=== PATIENT | female | born 1960 | race Caucasian/White ===

== ENCOUNTER 2018-05-02 08:01 | Day surgery (SDC) | payer OTHER ==
[~2018-05-02] VITALS: Ht 162.6 cm; Wt 80.2 kg
[~2018-05-02 08:01] MED LIST: TRAVATAN Z5 ML BOTH EYES
[2018-05-02 08:30] LABS: BASOPHIL (%) 1.3 % (0-1); BASOPHIL COUNT 0.1 K/uL (0-0.1); EOSINOPHIL (%) 1.4 % (0-5); EOSINOPHIL COUNT 0.1 K/uL (0-0.3); HEMATOCRIT 42.7 % (36.0-46.0); HEMOGLOBIN 13.7 G/DL (11.9-15.5); IMMATURE GRANULOCYTE (%) 0.2 % (0.0-0.7); LYMPHOCYTE (%) 39.1 % (15-42); LYMPHOCYTE COUNT 2.4 K/uL (1.0-2.8); MCH 31.2 PG (29.0-34.0); MCHC 32.1 G/DL (30.0-36.0); MCV 97.3 FL (83-99); MONOCYTE (%) 6.1 % (3-12); MONOCYTE COUNT 0.4 K/uL (0-0.8); NEUTROPHIL (%) 51.9 % (45-76); NEUTROPHIL COUNT 3.2 K/uL (1.8-6.4); PLATELET COUNT 288 K/uL (156-360); RBC DIS.WIDTH-CV 13.7 % (11.8-14.6); RBC DIS.WIDTH-SD 49.1 % (39-53); RED BLOOD COUNT 4.39 M/uL (3.80-5.20); WHITE BLOOD COUNT 6.2 K/uL (4.1-10.2)
[2018-05-02 08:59] VITALS: BP 130/77
[2018-05-02] MEDS ORDERED: IBUPROFEN800 MG PO (11:34)
[2018-05-02 12:40] VITALS: BP 151/87
[2018-05-02 13:35] VITALS: BP 130/80
== END 2018-05-02 13:45 | disposition home or self-care (01) ==
LOC: SDC 08:01
PROVIDERS: Obstetrics & Gynecology
DX: N95.0 Postmenopausal bleeding (principal); I49.9 Cardiac arrhythmia, unspecified
CPT/HCPCS: 81025; 85025; 86850; 86900; 86901; 88305; J1100; J1170; J1885; J2250; J2405; J3010